=== PATIENT | female | born 1990 | race Hispanic/Latino ===

== ENCOUNTER 2020-06-22 10:24 | Outpatient (CLI) | payer BC | END 2020-06-22 10:25 | disposition home or self-care (01) | LOC: BICULT 10:24 | PROVIDERS: ATTEND Internal Medicine | DX: R10.13 Epigastric pain (principal); R11.0 Nausea; K80.20 Calculus of gallbladder without cholecystitis without obstruction | CPT/HCPCS: 93975 ==

== ENCOUNTER 2020-08-14 16:30 | Outpatient (CLI) | payer BC ==
[2020-08-14 17:42] LABS: #Eosinphils 0.1 10x3/uL (0.0-0.5); #Monocytes 0.7 10x3/uL (0.0-1.1); #Neutrophils 4.9 10x3/uL (1.5-8.4); %Basophils 0.4 % (0.0-2.0); %Eosinophils 1.2 % (0.0-6.0); %Lymphocytes 32.6 % (18.0-47.0); %Neutrophils 57.7 % (40.0-75.0); Hemoglobin 13.8 g/dL (12.0-15.5); Mean Corpuscular HGB CONC 32.5 g/dL (32.0-36.0); Mean Corpuscular Hemoglobin 31.4 pg (27.0-33.0); Mean Corpuscular Volume 96.6 fl (81.6-98.3); Mean Platelet Volume 10.4 fl (7.4-10.4); Platelet Count 236 10x3/uL (150-450); RBC Distribution Width 12.1 % (11.5-14.5); Red Blood Cell (RBC) Count 4.39 10x6/uL (3.90-5.03); White Blood Cell (WBC) Count 8.4 10x3/uL (3.5-10.5)
[2020-08-14 17:56] LABS: ALT (SGPT) 25 U/L (8-55); AST (SGOT) 25 U/L (5-34); Albumin 4.4 g/dL (3.5-5.0); Alkaline Phosphatase 73 U/L (40-110); Anion Gap 13 mmol/L (10-20); BUN (Urea Nitrogen) 15 mg/dL (7.0-18.7); Bilirubin, Direct 0.1 mg/dL (0.1-0.3); Bilirubin, Total 0.3 mg/dL (0.2-1.2); Calc. Creatinine Clearance 0 mL/min (70-130); Calcium 9.7 mg/dL (7.8-10.44); Carbon Dioxide 24 mmol/L (22-29); Chloride 106 mmol/L (98-107); Glucose 90 mg/dL (70-105); Potassium 4.4 mmol/L (3.5-5.1); Protein, Total 7.9 g/dL (6.0-8.3); Sodium 139 mmol/L (136-145)
[2020-08-15 07:42] LABS: SARS-CoV-2 PCR by NAA Not Detected (NotDetected)
== END 2020-08-14 16:31 | disposition home or self-care (01) ==
LOC: LABBT 16:30
PROVIDERS: ATTEND Surgery
DX: Z01.812 Encounter for preprocedural laboratory examination (principal); K80.20 Calculus of gallbladder without cholecystitis without obstruction; Z20.822 Contact with and (suspected) exposure to COVID-19
CPT/HCPCS: 80048; 80076; 85025; U0003; U0005

== ENCOUNTER 2020-08-16 06:37 | Day surgery (SDC) | payer BC ==
[2020-08-15 10:54] VITALS: BMI 28.3
[2020-08-16] MEDS ORDERED: Ketamine 50 MG/ML (10ML VIAL) ONE (06:55)
[2020-08-16] MEDS ORDERED: Midazolam HCl 2 mg/2 ml Vial ONE (06:55)
[2020-08-16] MEDS ORDERED: Fentanyl 100 MCG/2 ML VIAL ONE ×3 (06:55→08:53)
[2020-08-16] MEDS ORDERED: Famotidine/PF 20 mg/2ml Vial ONE (06:55)
[2020-08-16] MEDS ORDERED: Bupivacaine 0.25% HCL 30 ML VIAL ONE (06:57)
[2020-08-16] MEDS ORDERED: EPINEPHrine 1 MG/ML AMP ONE (06:57)
[2020-08-16] MEDS ORDERED: cefOXitin Sodium/Dextrose 2 GM/50 ML BAG ONE (07:14)
[2020-08-16] MEDS ORDERED: Dexamethasone 20 MG/5 ML VIAL ONE (07:30)
[2020-08-16] MEDS ORDERED: Lidocaine 1% PF 5 ML VIAL ONE (07:30)
[2020-08-16] MEDS ORDERED: Glycopyrrolate 0.2 MG/ML 5 ML SYRINGE ONE (07:30)
[2020-08-16] MEDS ORDERED: Rocuronium Bromide 10 MG/ML (10ML VIAL) ONE (07:30)
[2020-08-16] MEDS ORDERED: Ondansetron PF 4 MG/2 ML Vial ONE (07:30)
[2020-08-16] MEDS ORDERED: PROPOFOL 200 MG/20 ML VIAL ONE (07:30)
[2020-08-16] MEDS ORDERED: traMADol HCl 50 MG TAB ONE (10:56)
== END 2020-08-16 11:55 | disposition home or self-care (01) ==
LOC: SDC 06:37
PROVIDERS: ATTEND Surgery
PROC: 0FT44ZZ Resection of Gallbladder, Percutaneous Endoscopic Approach (ICD-10-PCS; principal; 2020-08-16)
DX: K80.10 Calculus of gallbladder with chronic cholecystitis without obstruction (principal); Z79.899 Other long term (current) drug therapy; Z88.5 Allergy status to narcotic agent; Z88.8 Allergy status to other drugs, medicaments and biological substances
CPT/HCPCS: 88304; J0171; J0694; J1100; J2250; J2405; J2704; J3010; S0020; S0028